=== PATIENT | female | born 1975 | race African-American/Black ===

== ENCOUNTER 2017-11-28 18:56 | Emergency (ER) | payer MEDICAID ==
[~2017-11-28] VITALS: Ht 167.6 cm; Wt 78.0 kg
[~2017-11-28 18:56] MED LIST: CYCL-259 PO; DAPT500V6 IV; FERR325T18 PO; GABA300C10 PO; HEPA50002 SQ; HYDR-3237 PO; HYDR-3245 PO; LISI5TAB7 PO; NICO-485 TD; SENN1TAB7 PO
[2017-11-28 19:01] VITALS: BP 166/103
[2017-11-28] MEDS ORDERED: CEPHALEXIN 500 MG CAPSULE ONE (19:22)
[2017-11-28] MEDS ORDERED: FAMOTIDINE 20 MG TABLET ONE (19:22)
[2017-11-28] MEDS ORDERED: hydrOXyzine 50MG TABLET ONE (19:22)
[2017-11-28] MEDS ORDERED: LISINOPRIL 10 MG TABLET ONE (19:23)
[2017-11-28] MEDS ORDERED: FAMOTIDINE 20 MG TABLET PO ONE (19:30)
[2017-11-28] MEDS ORDERED: CEPHALEXIN 500 MG CAPSULE PO ONE (19:30)
[2017-11-28] MEDS ORDERED: LISINOPRIL 10 MG TABLET PO ONE (19:30)
== END 2017-11-28 19:54 | disposition home or self-care (01) ==
LOC: ED 19:48
DX: S80.261A Insect bite (nonvenomous), right knee, initial encounter (principal); L03.116 Cellulitis of left lower limb; I10 Essential (primary) hypertension; J45.909 Unspecified asthma, uncomplicated; F17.210 Nicotine dependence, cigarettes, uncomplicated; W57.XXXA Bitten or stung by nonvenomous insect and other nonvenomous arthropods, initial encounter; Y93.89 Activity, other specified; Y92.89 Other specified places as the place of occurrence of the external cause; Y99.8 Other external cause status
CPT/HCPCS: 99284; 99406; Q0177